=== PATIENT | female | born 1940 | race Caucasian/White ===

== ENCOUNTER 2022-06-20 14:01 | Emergency (ER) | payer OTHER, MEDICARE ==
[2022-06-20] MEDS ORDERED: MORPHINE 4 MG/ML SYR ONE (14:54)
[2022-06-20] MEDS ORDERED: NA CHLORIDE 0.9% 500 ML ONE (14:54)
[2022-06-20] MEDS ORDERED: ONDANSETRON 4 MG/2 ML VIAL ONE ×2 (14:54→16:31)
[2022-06-20 15:08] LABS: Albumin 3.8 g/dL (3.4-5.0); Bilirubin Total 0.7 mg/dL (0.2-1.0); Potassium 3.9 mEq/L (3.5-5.1); Protein, Total 7.2 g/dL (6.4-8.2)
--- NOTE | 2022-06-20 15:11 | RAD REPORT ---
EXAM DESCRIPTION: RAD - Chest Single View - 06/20/2022 2:58 pm CLINICAL HISTORY: ABDOMINAL DISTENTION Chest pain. COMPARISON: No comparisons FINDINGS: Portable technique limits examination quality. The lungs are grossly clear. The heart is mildly enlarged in size. No displaced fractures. IMPRESSION: No acute intrathoracic process suspected.
--- NOTE | 2022-06-20 15:31 | RAD REPORT ---
EXAM DESCRIPTION: CTAbdomen Pelvis W Contrast - 06/20/2022 3:23 pm CLINICAL HISTORY: Abdominal pain. Abdominal distention;Abd pain COMPARISON: No comparisons TECHNIQUE: Biphasic CT imaging of the abdomen and pelvis was performed with 100 ml non-ionic IV cont rast. All CT scans are performed using dose optimization technique as appropriate and may include automated exposure control or mA/KV adjustment according to patient size. FINDINGS: The lung bases are clear. The liver, spleen, pancreas, adrenal glands and right kidney are within normal limits. Moderate left- sided hydronephrosis and hydroureter proximally is caused by 5 mm stone in the proximal left ureter. No bowel obstruction, free air, free fluid or abscess. Sigmoid diverticulosis coli without diverticul itis. The appendix is normal. No evidence of significant lymphadenopathy. No suspicious bony findings. IMPRESSION: Moderate left hydronephrosis and hydroureter caused by 5 mm stone proximal left ureter.
[2022-06-20 16:11] LABS: Absolute Lymphocytes (CBC) 0.2 K/uL (0.7-4.9); Hematocrit 39.4 % (36.0-45.0); Lymphocytes % 1.5 % (15.3-44.8); MCV 83.7 fL (80-100); RBC Red Blood Cell Count 4.71 M/uL (3.86-4.86)
[2022-06-20 17:04] LABS: Specific Gravity > 1.030 (1.005-1.030); Urine Bacteria >50 /HPF (<20); Urine Bilirubin NEGATIVE (Negative); Urine Blood 3+ (Negative); Urine Clarity Clear (Clear); Urine Color Light-Yellow (Yellow); Urine Glucose NEGATIVE (Negative); Urine Mucus Slight /HPF (None Seen); Urine Protein TRACE (Negative); Urine RBC 21-50 /HPF (None Seen); Urine Urobilinogen Normal (Normal)
[2022-06-20] MEDS ORDERED: TAMSULOSIN 0.4 MG SR CAP ONE (17:50)
[2022-06-20] MEDS ORDERED: CEFTRIAXONE 1000 MG/VIAL ONE (17:50)
[2022-06-20] MEDS ORDERED: NA CHLORIDE 0.9% 50 ML ONE (17:50)
[2022-06-20] MEDS ORDERED: MAGNESIUM SULFATE 1 gm IVPB 1 GM/100 ML BAG IV ONE (17:50)
[2022-06-20] MEDS ORDERED: KETOROLAC 30 MG/ML INJ ONE (17:50)
[2022-06-20] MEDS ORDERED: CODEINE 30MG/APAP 300MG TAB ONE (18:10)
--- NOTE | 2022-06-20 18:20 | ER ---
Nurse's Notes [facility] Name: Alberto Stanton Age: 82 yrs Sex: Female : 1940 Arrival Date: 06/20/2022 Time: 14:01 Bed 19 Private MD: Diagnosis: Calculus of kidney with calculus of ureter-left Presentation: 06/20 14:15 Chief complaint: EMS states: LUQ pain, with nausea, vomiting, and back pain. BGL en kc6 route 168. 4mg of zofran and 50mcg of fentanyl given en route. Coronavirus screen: Vaccine status: Patient reports receiving the 2nd dose of the covid vaccine. At this time, the client does not indicate any symptoms associated with coronavirus-19. Ebola Screen: No symptoms or risks identified at this time. Initial Sepsis Screen: Does the patient meet any 2 criteria? No. Patient's initial sepsis screen is negative. Does the patient have a suspected source of infection? No. Patient's initial sepsis screen is negative. Risk Assessment: Do you want to hurt yourself or someone else? Patient reports no desire to harm self or others. Onset of symptoms was June 20, 2022. 14:15 Method Of Arrival: EMS: [facility] kc6 14:15 Acuity: KARLA 3 kc6 Triage Assessment: 14:17 General: Appears in no apparent distress. uncomfortable, Behavior is calm, cooperative, kc6 appropriate for age. Pain: Complains of pain in back and left upper quadrant Pain does not radiate. Pain currently is 7 out of 10 on a pain scale. at worst was 10 out of 10 on a pain scale. Is continuous, Noted to be grimacing, moaning, resistant to movement. EENT: No signs and/or symptoms were reported regarding the EENT system. Neuro: Mathew Agitation-Sedation Scale (RASS): 0 - Alert and Calm Level of Consciousness is awake, alert, obeys commands, Oriented to person, place, time, situation, Appropriate for age. Cardiovascular: Capillary refill < 3 seconds. Respiratory: Airway is patent Trachea midline Respiratory effort is even, unlabored, Respiratory pattern is regular, symmetrical. GI: Abdomen is flat, non-distended, Bowel sounds present X 4 quads. Abd is soft X 4 quads Abdomen is tender to palpation in left upper quadrant Reports nausea, vomiting, Patient currently denies diarrhea. : No signs and/or symptoms were reported regarding the genitourinary system. Derm: No signs and/or symptoms reported regarding the dermatologic system. Skin is intact, Skin is dry, Skin is pale, Skin temperature is warm. Musculoskeletal: No signs and/or symptoms reported regarding the musculoskeletal system. Circulation, motion, and sensation intact. Capillary refill < 3 seconds, Range of motion: intact in all extremities. Historical: - Allergies: 14:17 No Known Allergies; kc6 - PMHx: 14:17 Hypertensive disorder; kc6 - PSHx: 14:17 Appendectomy; hysterectomy; kc6 - Immunization history:: Client reports receiving the 2nd dose of the Covid vaccine, Flu vaccine is up to date. - Social history:: Smoking status: Patient denies any tobacco usage or history of. Screenin:55 [facility] ED Fall Risk Assessment (Adult) History of falling in the last 3 months, db including since admission No falls in past 3 months (0 pts) Confusion or Disorientation No (0 pts) Intoxicated or Sedated No (0 pts) Impaired Gait No (0 pts) Mobility Assist Device Used No (0 pt) Altered Elimination No (0 pt) Score/Fall Risk Level 0 - 2 = Low Risk Oriented to surroundings, Maintained a safe environment. Abuse screen: Denies threats or abuse. Denies injuries from another. Nutritional screening: No deficits noted. Tuberculosis screening: No symptoms or risk factors identified. Assessment: 17:40 Reassessment: Patient appears in no apparent distress at this time. Patient and/or kc6 family updated on plan of care and expected duration. Pain level reassessed. Patient is alert, oriented x 3, equal unlabored respirations, skin warm/dry/pink. General: Appears in no apparent distress. comfortable, Behavior is calm, cooperative, appropriate for age. 17:55 Reassessment: patient given water for PO challenge. db 18:30 Reassessment: Patient appears in no apparent distress at this time. Patient and/or db family updated on plan of care and expected duration. Pain level reassessed. Patient is alert, oriented x 3, equal unlabored respirations, skin warm/dry/pink. Patient states feeling better. Patient states symptoms have improved. 18:58 Reassessment: patient tolerated cranberry juice. db Vital Signs: 14:15 BP 173 / 59; Pulse 62; Resp 18 S; Temp 97.4(TE); Pulse Ox 93% on R/A; Weight 93.44 kg kc6 (R); Height 5 ft. 3 in. (R); Pain 7/10; 15:00 BP 142 / 50; Pulse 62; Resp 18; Pulse Ox 96% on R/A; db 17:40 BP 148 / 62; Pulse 65; Resp 18 S; Pulse Ox 97% on R/A; kc6 18:30 BP 123 / 49; Pulse 52; Resp 16; Pulse Ox 98% ; db 14:15 Body Mass Index 36.49 (93.44 kg, 160.02 cm) kc6 14:15 Pain Scale: Adult kc6 ED Course: 14:15 Patient arrived in ED. kc6 14:15 Allen Esquivel PA is PHCP. cp 14:15 Angelo Valdez MD is Attending Physician. cp 14:17 Triage completed. kc6 14:17 Arm band placed on. kc6 14:19 Maintain EMS IV. Dressing intact. Good blood return noted. Site clean \T\ dry. Gauge \T\ jon 6 site: 20G RAC. 14:27 Sasha Julian, RN is Primary Nurse. db 14:59 XRAY Chest (1 view) In Process Unspecified. EDMS 15:21 CT Abd/Pelvis - IV Contrast Only In Process Unspecified. EDMS 17:55 Patient has correct armband on for positive identification. Bed in low position. Call db light in reach. Side rails up X 1. Pulse ox on. NIBP on. Warm blanket given. 18:19 José Manuel Romero MD is Referral Physician. cp 19:17 No provider procedures requiring assistance completed. IV discontinued, intact, db bleeding controlled, No redness/swelling at site. Administered Medications: 15:00 Drug: morphine IVP or IV 4 mg Route: IVP; Infused Over: 4 mins; Site: right antecubital;db 19:18 Follow up: Response: No adverse reaction db 15:00 Drug: Ondansetron IVP 4 mg Route: IVP; Site: right antecubital; db 19:18 Follow up: Response: No adverse reaction db 15:00 Drug: NS 0.9% IV 500 ml Volume: 500 ml; Route: IV; Rate: 250 ml/hr; Site: right db antecubital; 18:00 Follow up: Response: No adverse reaction; IV Status: Completed infusion; IV Intake: db 500ml 16:28 Drug: Ondansetron IVP 4 mg Route: IVP; Site: right antecubital; db 17:59 Follow up: Response: No adverse reaction db 17:45 Drug: Rocephin IV 1 grams Route: IV; Rate: calculated rate; Site: right antecubital; db 17:59 Follow up: Response: No adverse reaction; IV Status: Completed infusion; IV Intake: 50mldb 17:48 Drug: Ketorolac IVP 15 mg Route: IVP; Site: right antecubital; db 19:18 Follow up: Response: No adverse reaction db 17:50 Drug: Flomax PO 0.4 mg Route: PO; db 19:18 Follow up: Response: No adverse reaction db 17:54 Drug: Magnesium Sulfate IVPB 1 grams Route: IVPB; Infused Over: 1 hrs; Site: right db antecubital; 18:57 Follow up: Response: No adverse reaction; IV Status: Completed infusion; IV Intake: db 100ml 17:55 Drug: Acetaminophen-Codeine PO (300 mg-30 mg) 1 tablet Route: PO; db 19:19 Follow up: Response: No adverse reaction db Medication: 19:17 VIS not applicable for this client. db Intake: 17:59 IV: 50ml; Total: 50ml. db 18:00 IV: 500ml; Total: 550ml. db 18:57 IV: 100ml; Total: 650ml. db Outcome: 18:19 Discharge ordered by MD. cp 19:17 Discharged to home via wheelchair, with family. db 19:17 Condition: stable 19:17 Discharge instructions given to patient, family, Instructed on discharge instructions, follow up and referral plans. Prescriptions given X 4. 19:19 Patient left the ED. db Signatures: Dispatcher [employer] EDMS Allen Esquivel PA PA cp Campbell, Kaitlyn, RN RN kc6 Sasha Julian RN RN db
--- NOTE | 2022-06-20 18:20 | EDPHYS ---
Physician Documentation [facility] Name: Alberto Stanton Age: 82 yrs Sex: Female : 1940 Arrival Date: 06/20/2022 Time: 14:01 Bed 19 Private MD: ED Physician Angelo Valdez HPI: 06/20 15:00 This 82 yrs old Female presents to ER via EMS with complaints of Abdominal Pain, cp Nausea/Vomiting. 15:00 The patient presents with abdominal pain left flank and left upper abdomen abdominal cp distention. 15:00 Onset: The symptoms/episode began/occurred this morning. cp 15:00 The symptoms radiate to left back. Associated signs and symptoms: Pertinent positives: cp nausea and vomiting, Pertinent negatives: blood in stools, chest pain, constipation, diarrhea, fever. The symptoms are described as constant. Severity of pain: in the emergency department the pain is unchanged despite home interventions. Historical: - Allergies: 14:17 No Known Allergies; kc6 - PMHx: 14:17 Hypertensive disorder; kc6 - PSHx: 14:17 Appendectomy; hysterectomy; kc6 - Immunization history:: Client reports receiving the 2nd dose of the Covid vaccine, Flu vaccine is up to date. - Social history:: Smoking status: Patient denies any tobacco usage or history of. ROS: 15:05 Constitutional: Negative for body aches, chills, fever. cp 15:05 Eyes: Negative for injury, pain, redness, and discharge. cp 15:05 ENT: Negative for drainage from ear(s), ear pain, sore throat, difficulty swallowing, difficulty handling secretions. 15:05 Cardiovascular: Negative for chest pain, edema, palpitations. 15:05 Respiratory: Negative for cough, shortness of breath, wheezing. 15:05 Abdomen/GI: Positive for abdominal pain, nausea, vomiting, of the posterior aspect of left lateral abdomen, anterior aspect of left lateral abdomen and left upper quadrant, Negative for diarrhea, constipation. 15:05 Back: Positive for flank pain, on the left, radiated pain, Negative for injury or acute deformity. 15:05 : Negative for urinary symptoms. 15:05 Skin: Negative for cellulitis, rash. 15:05 Neuro: Negative for altered mental status, dizziness, headache, syncope, weakness. 15:05 All other systems are negative. Exam: 15:10 Constitutional: The patient appears in no acute distress, alert, awake, cp non-diaphoretic, non-toxic, well developed, well nourished, uncomfortable. 15:10 Head/Face: Normocephalic, atraumatic. cp 15:10 Eyes: Periorbital structures: appear normal, Conjunctiva: normal, no exudate, no injection, Sclera: no appreciated abnormality, Lids and lashes: appear normal, bilaterally. 15:10 ENT: External ear(s): are unremarkable, Nose: is normal, Mouth: Lips: moist, Oral mucosa: pink and intact, moist, Posterior pharynx: is normal, airway is patent, no erythema, no exudate. 15:10 Neck: ROM/movement: is normal, is supple, without pain, no range of motions limitations. 15:10 Chest/axilla: Inspection: normal. 15:10 Cardiovascular: Rate: normal, Rhythm: regular, Edema: is not appreciated, JVD: is not appreciated. 15:10 Respiratory: the patient does not display signs of respiratory distress, Respirations: normal, no use of accessory muscles, no retractions, labored breathing, is not present, Breath sounds: are clear throughout, no decreased breath sounds, no stridor, no wheezing. 15:10 Abdomen/GI: Inspection: distension, that is moderate, Bowel sounds: active, all quadrants, Palpation: soft, in all quadrants, moderate abdominal tenderness, in the posterior aspect of left lateral abdomen, anterior aspect of left lateral abdomen and left upper quadrant, rebound tenderness, is not appreciated, involuntary guarding, is not appreciated. 15:10 Back: pain, that is moderate, of the left mid back, ROM is painful, with all movement. 15:10 Skin: cellulitis, is not appreciated, no rash present. 15:10 Neuro: Orientation: to person, place \T\ time. Mentation: is normal, Motor: moves all fours, strength is normal, Sensation: is normal. Vital Signs: 14:15 BP 173 / 59; Pulse 62; Resp 18 S; Temp 97.4(TE); Pulse Ox 93% on R/A; Weight 93.44 kg kc6 (R); Height 5 ft. 3 in. (R); Pain 7/10; 15:00 BP 142 / 50; Pulse 62; Resp 18; Pulse Ox 96% on R/A; db 17:40 BP 148 / 62; Pulse 65; Resp 18 S; Pulse Ox 97% on R/A; kc6 18:30 BP 123 / 49; Pulse 52; Resp 16; Pulse Ox 98% ; db 14:15 Body Mass Index 36.49 (93.44 kg, 160.02 cm) kc6 14:15 Pain Scale: Adult kc6 MDM: 14:16 Patient medically screened. 18:15 Data reviewed: vital signs, nurses notes, lab test result(s), radiologic studies, CT cp scan. 18:15 Consideration of Admission/Observation Escalation of care including cp admission/observation considered. 18:19 I considered the following discharge prescriptions or medication management in the emergency department Medications were administered in the Emergency Department. See MAR. 18:19 Differential diagnosis: cholecystitis, Cholelithiasis, non-specific abd pain, cp pancreatitis, Pyelonephritis, Ureterolithiasis, urinary tract infection. Counseling: I had a detailed discussion with the patient and/or guardian regarding: the historical points, exam findings, and any diagnostic results supporting the discharge/admit diagnosis, lab results, radiology results, to return to the emergency department if symptoms worsen or persist or if there are any questions or concerns that arise at home. Response to treatment: the patient's symptoms have markedly improved after treatment. ED course: Discussed transfer for pain control and monitoring, but declines and wants to try outpatient treatment at this time. Patient to return to ED worsening pain, fever. 06/20 14:18 Order name: CBC with Diff; Complete Time: 16:48 06/20 16:49 Interpretation: Normal except: WBC 14.70; KEVIN% 97.0; LYM% 1.5; MN% 1.0; NEUT A 14.3; cp LYMA 0.2. 06/20 14:18 Order name: CMP; Complete Time: 15:57 06/20 16:49 Interpretation: Normal except: GLUC 127; BUN 24; GFR 58. 06/20 14:18 Order name: Lipase; Complete Time: 15:57 06/20 14:18 Order name: Urinalysis w/ reflexes; Complete Time: 17:38 06/20 17:38 Interpretation: Reviewed. 06/20 17:27 Order name: Urine Culture EDPA 06/20 14:18 Order name: XRAY Chest (1 view); Complete Time: 15:57 cp 06/20 15:00 Order name: CT Abd/Pelvis - IV Contrast Only; Complete Time: 15:57 cp 06/20 14:18 Order name: IV Saline Lock; Complete Time: 14:41 cp 06/20 14:18 Order name: Labs collected and sent; Complete Time: 15:25 cp 06/20 14:55 Order name: Labs - recollect needed: recollect cbc; Complete Time: 15:25 eb 06/20 17:53 Order name: PO challenge; Complete Time: 17:55 cp Administered Medications: 15:00 Drug: morphine IVP or IV 4 mg Route: IVP; Infused Over: 4 mins; Site: right antecubital;db 19:18 Follow up: Response: No adverse reaction db 15:00 Drug: Ondansetron IVP 4 mg Route: IVP; Site: right antecubital; db 19:18 Follow up: Response: No adverse reaction db 15:00 Drug: NS 0.9% IV 500 ml Volume: 500 ml; Route: IV; Rate: 250 ml/hr; Site: right db antecubital; 18:00 Follow up: Response: No adverse reaction; IV Status: Completed infusion; IV Intake: db 500ml 16:28 Drug: Ondansetron IVP 4 mg Route: IVP; Site: right antecubital; db 17:59 Follow up: Response: No adverse reaction db 17:45 Drug: Rocephin IV 1 grams Route: IV; Rate: calculated rate; Site: right antecubital; db 17:59 Follow up: Response: No adverse reaction; IV Status: Completed infusion; IV Intake: 50mldb 17:48 Drug: Ketorolac IVP 15 mg Route: IVP; Site: right antecubital; db 19:18 Follow up: Response: No adverse reaction db 17:50 Drug: Flomax PO 0.4 mg Route: PO; db 19:18 Follow up: Response: No adverse reaction db 17:54 Drug: Magnesium Sulfate IVPB 1 grams Route: IVPB; Infused Over: 1 hrs; Site: right db antecubital; 18:57 Follow up: Response: No adverse reaction; IV Status: Completed infusion; IV Intake: db 100ml 17:55 Drug: Acetaminophen-Codeine PO (300 mg-30 mg) 1 tablet Route: PO; db 19:19 Follow up: Response: No adverse reaction db Disposition Summary: 06/20/22 18:19 Discharge Ordered Location: Home cp Problem: new cp Symptoms: have improved cp Condition: Stable cp Diagnosis - Calculus of kidney with calculus of ureter - left cp Followup: cp - With: José Manuel Romero MD - When: 2 - 3 days - Reason: pain continues Discharge Instructions: - Discharge Summary Sheet cp - Kidney Stones cp - Renal Colic cp Forms: - Medication Reconciliation Form cp - Thank You Letter cp - Antibiotic Education cp - Prescription Opioid Use cp Prescriptions: - Flomax 0.4 mg Oral capsule - take 1 capsule by ORAL route once; 7 tablet; Refills: 0, Product Selection cp Permitted - acetaminophen-codeine 300-30 mg Oral tablet - take 1 tablet by ORAL route every 6-8 hours; 12 tablet; Refills: 0, Product cp Selection Permitted - Zofran 4 mg Oral Tablet - take 1 tablet by ORAL route every 12 hours As needed; 20 tablet; Refills: 0, cp Product Selection Permitted - cefpodoxime 200 mg Oral Tablet - take 1 tablet by ORAL route every 12 hours with food; 14 tablet; Refills: 0, cp Product Selection Permitted Signatures: Dispatcher [employer] EDAllen South PA PA cp Botello, Elizabeth eb Campbell, Kaitlyn, RN RN kc6 Sasha Julian RN RN db
[2022-06-20 19:38] VITALS: TEMP 97.4
[2022-06-20 19:43] VITALS: BP 123/49; O2SAT 98
== END 2022-06-20 19:19 | disposition home or self-care (01) ==
LOC: ER 14:01
DX: N20.2 Calculus of kidney with calculus of ureter (principal); I10 Essential (primary) hypertension
CPT/HCPCS: 96365; 96361; 87088; 85025; 81001; 87086; 36415; 83690; 80053; 74177; 71045; 96375; 99284; Q9967; J3475; J2405 ×2; J7040; J0696; 87077; 87186